=== PATIENT | male | born 1940 | race Caucasian/White ===

== ENCOUNTER 2018-06-01 10:05 | Outpatient (CLI) | payer MEDICARE ==
--- NOTE | 2018-06-01 13:41 | CT ---
CT CHEST WITH CONTRAST: 06/01/18 HISTORY: Abdominal chest CT. COMPARISON: CT 11/24/16. FINDINGS: The curvilinear mass-like scarring in the right upper lobe is similar. No new suspicious pulmonary ma ss. Severe central lobular emphysema. No pneumothorax. No effusion. No new suspicious pulmonary nodule. There is some mild bronchiectasis a nd scarring in the right lung base. Mediastinal lymph nodes are unchanged. No pericardial effusion. N o intrahepatic or extrahepatic biliary dilatation is similar. There is cholelithiasis. Left sided renal hypodensity is similar. Adrenal masses are unchanged. Mild fatty atrophy of the pancreas. 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 No displaced rib fracture. IMPRESSION: Unchanged appearance of the scar in the right upper lobe. No new suspicious pulmonary mass. POS: [facility]
== END 2018-06-01 10:06 | disposition home or self-care (01) ==
LOC: CT 10:05
PROVIDERS: ATTEND Family Medicine
DX: R91.8 Other nonspecific abnormal finding of lung field (principal)
CPT/HCPCS: 71260